=== PATIENT | female | born 1990 | race Caucasian/White ===

== ENCOUNTER 2022-10-09 05:17 | Inpatient (IN) | payer OTHER ==
[~2022-10-09] VITALS: Ht 165.1 cm; Wt 2.7 kg
[2022-10-09] MEDS ORDERED: ZOFRAN8 MG PO (08:35)
[2022-10-09] MEDS ORDERED: LABETALOL HCL200 MG PO (08:35)
[2022-10-09] MEDS ORDERED: PRENATAL + DHA1 EAC1 PO (08:36)
[2022-10-09] MEDS ORDERED: DICLEGIS DR 101 EACH PO (08:36)
== END 2022-10-11 17:11 | disposition home or self-care (01) | DRG 787 ==
LOC: OB/GYN 05:17 → LDR 05:17 → OB/GYN 15:35
PROVIDERS: ADMIT Obstetrics & Gynecology; ATTEND Obstetrics & Gynecology
PROC: 4A1HXCZ Monitoring of Products of Conception, Cardiac Rate, External Approach (ICD-10-PCS; 2022-10-09)
PROC: 10D00Z1 Extraction of Products of Conception, Low, Open Approach (ICD-10-PCS; principal; 2022-10-09 15:00)
DX: O62.1 Secondary uterine inertia (principal); O10.02 Pre-existing essential hypertension complicating childbirth; Z3A.38 38 weeks gestation of pregnancy; Z37.0 Single live birth; Z20.822 Contact with and (suspected) exposure to COVID-19